=== PATIENT | male | born 1980 | race Caucasian/White ===

== ENCOUNTER → 2018-03-03 10:03 | Outpatient (CLI) | payer OTHER, SELFPAY ==
[2018-03-03 12:03] LABS: Absolute Lymphocyte Count 2.46 X10^3/ul (0.83-4.51); Absolute Neutrophil Count 5.5 X10^3/uL (2.0-7.7); Basophil# 0.12 X10^3/uL; Basophil% 1.3 % (0-1); Eosinophil# 0.08 X10^3/uL; Eosinophils% 0.9 % (0-5); Hemoglobin 16.5 g/dl (13.0-16.5); Lymphocyte # 2.46 X10^3/ul (4.0); Lymphocyte % 27.1 % (19-41); Mean Corp Hgb Conc 34.4 g/gl (32-36); Mean Corpuscular Hgb 29.9 pg (27.0-32.0); Mean Platelet Vol. 11.2 fl (6.2-12.0); Monocyte# 0.88 X10^3/uL; Monocyte% 9.7 % (0-10); Neutrophil % 60.7 % (47-70); Platelet Count 362 K/mm3 (150-450); RBC Distribution Width CV 12.6 % (11.6-14.6); RBC Distribution Width SD 40.3 fl (35.1-43.9); Red Blood Count 5.52 M/mm3 (4.6-6.2); White Blood Count 9.1 K/mm3 (4.4-11.0)
[2018-03-03 12:06] LABS: POSITIVE COUNT NO; POSITIVE DIFFERENTIAL NO; POSITIVE MORPHOLOGY NO
[2018-03-03 12:20] LABS: BUN 14 mg/dL (7-18); Creatinine, Serum 0.77 mg/dL (0.70-1.30); EST Glomerular Filtration Rate 119 mL/min (>60); Glucose 290 mg/dL (74-106)
[2018-03-03 12:21] LABS: ALB/GLOB Ratio 0.9 RATIO (0.9-2.4); AST(SGOT) 21 U/L (15-37); Alanine Aminotransfer ALT/SGPT 40 U/L (16-61); Albumin, Serum 3.8 g/dL (3.2-5.0); Alkaline Phosphatase 112 U/L (45-117); Anion Gap 10 (5-15); BUN/Creat Ratio 18.3 RATIO (10-20); Calcium,Total 9.3 mg/dL (8.5-10.1); Chloride 101 mmol/L (98-107); Cholesterol 234 mg/dL (200); Est Glom Filt Rate - Afr Amer 145 mL/min (>60); Globulin 4.3 g/dL (2.2-4.2); High Density Lipoprotein 33 mg/dL; Magnesium 1.8 mg/dL (1.6-2.6); Potassium 4.4 mmol/L (3.5-5.1); Protein, Total 8.1 g/dL (6.4-8.2); Sodium Level 134 mmol/L (136-145); Thyroid Stim Hormone (TSH) 0.76 uIU/mL (0.358-3.74); Triglycerides 401 mg/dL
[2018-03-03 18:03] LABS: Hemoglobin A1c 11.2 % (4.2-6.3)
== END ==
PROVIDERS: Family Provider Family Medicine; PCP Family Medicine; Visit Provider Family Medicine
DX: E11.9 Type 2 diabetes mellitus without complications (principal); I10 Essential (primary) hypertension
CPT/HCPCS: 36415; 80053; 80061; 83036; 83735; 84443; 85025

== ENCOUNTER 2024-06-28 07:15 | Emergency (ER) | payer OTHER, SELFPAY ==
[2024-06-28 07:16] VITALS: BP 235/132; PULSE 114; RESP 18; TEMP 36.5; O2SAT 98; BMI 38.0
--- NOTE | 2024-06-28 07:41 | EX.ED.UPPERE ---
HPI History of Present Illness HPI Narrative: Patient is a 44-year-old male who presented to the emergency department with chief complaint of right arm pain. Patient states that he was at work this morning lifting a heavy plate off a table and he was carrying one-handed when he noted that he felt extreme pain in his right forearm causing him to drop a plate. 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 Patient states that his work did make him come here to be evaluated. He noted that he did not take anything prior to coming here for pain. Chief Complaint: Upper Extremity Injury PFSH PFSH Home Medications ?Medication ?Instructions ?Recorded ?Last Taken ?Type lisinopril 20 mg tablet (Zestril) 20 mg PO DAILY hypertension #30 05/18/17 Unknown Rx tabs Allergy/AdvReac Type Severity Reaction Status Date / Time No Known Allergies Allergy Verified 05/18/17 15:08 Social History Smoking Status: Former smoker ROS ROS ED ROS Narrative Constitutional: Denies fevers, chills, headaches Cardiovascular: Denies chest pain or palpitations Respiratory: Denies cough wheeze shortness of breath Abdomen: Denies abdominal pain nausea vomit diarrhea Neurological: Denies numbness, weakness, tingling Musculoskeletal: Planes of right forearm pain and was noted above Neurological: Denies numbness, weakness, tingling Skin: Denies rashes or lesions EXAM Physical Exam Narrative Exam Narrative: General: Patient was sitting in chair at bedside did appear to be uncomfortable secondary to his arm pain Head: Atraumatic, normocephalic Eyes: PERRL bilaterally, EOMI bilaterally no conjunctival injection noted Neck: Soft, supple, trach midline Cardiovascular: Regular rate and rhythm no murmurs gallops or rubs noted Musculoskeletal: Patient has tenderness palpation just distal to his elbow on the dorsal aspect of his forearm. All bony prominences were palpated in the region and in his right upper extremity no pain elicited. Patient does have pain with resisted wrist extension. He states that the pain is right in the region of his mobilewad. Biceps tendon appears to be intact on exam. Extremities: +4/5 strength noted in the right upper extremity likely secondary to pain he states, +5/5 strength noted in the left upper extremity, radial pulses +2/4 in the bilateral upper extremities. Patient is given the okay sign thumbs up and oppose his thumb to his pinky bilaterally Neurological: Patient following commands knew that he was at [facility] the year is 2023. Patient has sensation intact in the median, ulnar, radial and axillary nerve distributions bilaterally Skin: Warm, dry, intact Const Vital Signs: 06/28/24 07:16 Temperature 97.7 F L Temperature Source Temporal Pulse Rate 114 H Respiratory Rate 18 Blood Pressure 235/132 H Blood Pressure Mean 166 Pulse Ox 98 Oxygen Delivery Method Room Air MDM MDM MDM Narrative Medical decision making narrative: Patient is a 44-year-old male who presented to the emerged part with chief complaint of right forearm pain after injury at work. On the differential diagnose closed Melamin to extensor tendon strain, rupture, biceps tendon rupture although do feel that this less likely as noted on exam does appear to be intact. Do believe the patient has a musculoskeletal strain in his extensor tendons near the lateral epicondyle. The extensor mechanism appears to be intact grossly on exam does have pain with attempted wrist extension against resistance but is able to complete this. Patient was encouraged to continue ice, ibuprofen, Tylenol [id number] for pain. He will be referred to orthopedics in outpatient setting. He will be care to follow-up with his primary care physician in the outpatient setting. Patient is requesting sling for comfort which she was provided. He was given return precautions and encouraged to return with worsening symptoms or other concerns he verbalized understanding of these. All question concerns were answered he is discharged home in stable condition. Discharge Plan Triage Chief Complaint: Upper Extremity Injury ED Provider: Jose Eduardo Carrion Dx/Rx/DC Orders Clinical Impression: Musculoskeletal strain Prescriptions: No Action lisinopril [Zestril] 20 MG tablet 20 mg PO DAILY Qty: 30 0RF Primary Care Provider: Care Physician,No Primary Referrals: Marysol Card MD [Med Staff - [employer]] - Salvatore Corona MD [Med Staff - Active Staff] - Activity Restrictions/Additional Instructions: Follow-up with your primary care physician in the outpatient setting. Follow-up with orthopedics for which she referred to. Ice, use ibuprofen and Tylenol [id number] for pain control. May return to work with light duty and advance as tolerated. Follow-up for Workmen's Comp. Return with worsening symptoms or any concerns. Print Language: Macedonian Disposition Disposition: Home, Self Care
[2024-06-28 08:17] VITALS: BP 203/117; PULSE 102; RESP 18; TEMP 36.6
== END 2024-06-28 09:52 | disposition home or self-care (01) ==
PROVIDERS: Emergency Provider Emergency Medicine; Visit Provider Emergency Medicine
DX: S46.811A Strain of other muscles, fascia and tendons at shoulder and upper arm level, right arm, initial encounter (principal); Z87.891 Personal history of nicotine dependence; X50.0XXA Overexertion from strenuous movement or load, initial encounter; Y93.89 Activity, other specified; Y99.0 Civilian activity done for income or pay; Y92.89 Other specified places as the place of occurrence of the external cause
CPT/HCPCS: 99283